=== PATIENT | male | born 1990 | race Caucasian/White ===

== ENCOUNTER 2020-10-05 14:20 | Emergency (ER) | payer SELFPAY ==
[~2020-10-05] VITALS: Ht 175 cm; Wt 65.0 kg
[2020-10-05 14:25] VITALS: BP 151/74
[2020-10-05] MEDS ORDERED: SULF1TAB38 PO (14:43)
--- NOTE | 2020-10-05 14:43 | ED Integumentary General ---
General Chief Complaint: Bite-Animal/Human/Insect Stated Complaint: DOG BITE ARM/LEG Source: patient, family Exam Limitations: no limitations History of Present Illness Date Seen by Provider: Oct 05, 2020 Time Seen by Provider: 14:16 Initial Comments Patient to the ER by private conveyance with his sister and chief complaint that this morning about 3 or 4 in the morning his personal [place] bulldog became startled by someone outside and apparently attacked his grandmother and he has sustained several bite wounds to his left leg as well as his left forearm trying to get the dog . His sister is concerned that because he blames himself he may become suicidal. He has made no such statements to her but is very distraught emotionally. He states he uses all kinds of drugs but does not go into any details about that. The dog was taken into custody by police. The grandmother was apparently treated locally at [facility] and air flighted out. He is not up-to-date on his tetanus vaccines. He does not take any medications routinely. He is not having any chest pain or shortness of air. Allergies and Home Medications Allergies Coded Allergies: No Known Drug Allergies (Unverified , 06/22/13) Home Medications Sulfamethoxazole/Trimethoprim 1 Each Tablet, 1 EACH PO BID Prescribed by: TRISTAN ALVARADO on 10/05/20 1443 Patient Home Medication List Home Medication List Reviewed: Yes Review of Systems Review of Systems Constitutional: No chills, No diaphoresis EENTM: No hearing loss, No ear pain Respiratory: No cough, No short of breath Cardiovascular: No chest pain, No edema Gastrointestinal: No abdominal pain, No nausea, No vomiting Genitourinary: No discharge, No dysuria Musculoskeletal: No back pain, No joint pain All Other Systems Reviewed Negative Unless Noted: Yes Past Lygzyiw-Wkuiza-Nsmxhc Hx Patient Social History Tobacco Use?: Yes Use of E-Cig and/or Vaping dev: No Substance use?: Yes Alcohol Use?: Yes Past Medical History Reproductive Disorders: No Physical Exam Vital Signs Vital Signs - First Documented 10/05/20 14:25 Temp 36.3 Pulse 108 Resp 16 B/P (MAP) 151/74 (99) Pulse Ox 94 O2 Delivery Room Air Capillary Refill : General Appearance: WD/WN, mild distress HEENT: PERRL/EOMI, pharynx normal Neck: full range of motion, normal inspection Cardiovascular: normal peripheral pulses, regular rate, rhythm Respiratory: no respiratory distress, no accessory muscle use Gastrointestinal: non tender, soft Neurologic/Psychiatric: alert, oriented x 3, other (Anxious) Skin: normal color, warm/dry, other (Multiple small wound markings and swollen left forearm with erythema. Hemostatic. There is a 3 x 4 cm ragged irregular wound on the left medial calf) Progress/Results/Core Measures Results/Orders Vital Signs/I&O 10/05/20 14:25 Temp 36.3 Pulse 108 Resp 16 B/P (MAP) 151/74 (99) Pulse Ox 94 O2 Delivery Room Air Progress Progress Note : Time: 14:40 Progress Note Patient agreed to get a tetanus vaccine and some x-rays to look for retained fragments as well as start a course of antibiotics. Florian cleaned the wounds up. None of them necessarily needed stitched and most of the wounds were fairly heavily contaminated so would benefit from healing by secondary intent. Is quite a bit of swelling in the left forearm and there is some concern for an underlying fracture. As this provider left the room the patient walked out behind him and said he was going home and thanked us for helping him. We told him least we would send some antibiotics to the pharmacy but were unable to actually do any wound cleaning, x-rays or tetanus vaccine. Departure Impression Primary Impression: Dog bite Qualified Codes: W54.0XXA - Bitten by dog, initial encounter Disposition: AGAINST MEDICAL ADVICE Condition: Against Medical Advice Departure-Patient Inst. Decision time for Depature: 14:30 Referrals: NO,LOCAL PHYSICIAN (PCP/Family) Primary Care Physician Patient Instructions: Animal Bites (DC) Add. Discharge Instructions: I highly suggest you return to the nearest ER for rabies prophylaxis and have the wound clean and x-rays performed. Follow-up with your primary care doctor. If you have concerns or need help with counseling with grief or feelings of depression, suicidal thoughts etc. then call [phone]. Bactrim 1 tablet twice a day with food for the next week to prevent infection in your arm. Return to the ER promptly if you are having fevers, discharge from the wounds, redness going up your arm or other worrisome symptoms. All discharge instructions reviewed with patient and/or family. Voiced understanding. Scripts Sulfamethoxazole/Trimethoprim (Bactrim Ds Tablet) 1 Each Tablet 1 EACH PO BID for 7 Days, #14 TAB 0 Refills Prov: TRISTAN ALVARADO 10/05/20 TRISTAN ALVARADO Oct 05, 2020 14:43
== END 2020-10-05 14:33 | disposition left against medical advice (07) ==
LOC: EDUNIT# 14:20 → ER 14:22
DX: S51.852A Open bite of left forearm, initial encounter (principal); S81.852A Open bite, left lower leg, initial encounter; W54.0XXA Bitten by dog, initial encounter
CPT/HCPCS: 99281